=== PATIENT | male | born 1995 | race Caucasian/White ===

== ENCOUNTER 2023-08-14 13:40 | Emergency (ER) | payer OTHER, SELFPAY ==
[2023-08-14 13:52] VITALS: BP 115/67; PULSE 86; RESP 16; TEMP 36.8; O2SAT 97
--- NOTE | 2023-08-14 14:09 | ED.MALEGU ---
HPI - Male Genitourinary General Chief complaint: Urogenital-Male Stated complaint: Std test Time Seen by Provider: 08/14/23 14:09 Source: patient, RN notes reviewed and old records reviewed Mode of arrival: ambulatory Limitations: no limitations History of Present Illness HPI Narrative: 28 year old male presents to [facility] care with report that his girlfriend was in this clinic yesterday and tested positive for Trichomonas and received treatment and he wants tested also with treatment for trichomonas. Patient reports that he has not been with anyone besides his girlfriend. Patient denies any burning or pain with urination or any penis drainage, denies any CVA pain or any abdominal pain. Patient is diabetic and he is on insulin pump but does not have [employer] glucose monitor for 24 hour monitoring. Patient has 2+ glucose in his urine and Protein is 1+ with no blood, nitrates, or Leukocytes. Patient is diabetic and on insulin pump urine showing 2+ glucose, patient reports that he has not eaten today and finger stick 231. MD Complaint: other (STD exposure) Onset (ago): day(s) (1 day he was notified by girlfriend that she tested positive for trichomonas) Associated symptoms: Reports other (none) Related Data Home Medications Medication Instructions Recorded Confirmed insulin lispro 100 unit/mL 08/14/23 subcutaneous solution (Humalog U-100 Insulin) Allergies Allergy/AdvReac Type Severity Reaction Status Date / Time No Known Allergies Allergy Unverified 05/29/17 10:58 Review of Systems Review of Systems: CONSTITUTIONAL: Denies fever, chills, or sweats. CARDIOVASCULAR: Denies chest pain, palpitations, or edema. RESPIRATORY: Denies cough or dyspnea. GASTROINTESTINAL: Denies abdominal pain, nausea, vomiting, or diarrhea. GENITOURINARY: Reports no dysuria, frequency, urgency. Denies flank pain or hematuria,no penis discharge SKIN: Denies rash or itching. MUSCULOSKELETAL: Denies back pain or myalgia. Denies CVA tenderness NEUROLOGIC: Denies headache All systems reviewed & are unremarkable except as noted in HPI and below PMFSH Past Medical History Medical History (Updated 08/14/23 @ 15:35 by Renee Hernandez NP) Bronchitis Diabetes Gastroenteritis Surgical History Surgical History (Updated 08/14/23 @ 15:09 by Renee Hernandez NP) History of tonsillectomy Social History Social History (Updated 08/14/23 @ 15:08 by Renee Hernandez NP) Tobacco type: e-cigarettes/vaping Alcohol intake: never Substance use type: marijuana Living arrangements: other Additional living arrangements comments: with girlfriend Gender identity (if verbalized by the patient): Male Comments At time of signature, agree with nursing past medical, surgical, social and family history. There is no relevant family history pertinent to the presenting complaint Exam Narrative: GENERAL: Well-appearing, well-nourished, and in no acute distress. HEAD: Normocephalic, atraumatic. NECK: Supple.no lymphadenopathy CHEST: Clear to auscultation. No respiratory distress. SAO2 97% on room air HEART: Regular rate and rhythm. No murmur heard. Normal peripheral pulses. ABDOMEN: Soft, nontender, nondistended, normal active bowel sounds. No CVA tenderness, denies any burning with urination or any pain or penis drainage EXTREMITIES: Normal range of motion. No edema. SKIN: Warm, dry, no rash. NEURO: No focal deficits. Alert and oriented x3. Course Course Emergency Course: Patient is aware of diagnosis, understands and agrees to treatment plan.? Anticipatory guidance given.? Patient agrees to follow-up as directed and is aware of reasons to seek care at the emergency department. Portions of this record may have been created with voice recognition software Level of Care: Express Care Visit Vital Signs Vital signs: Vital Signs Temperature 36.8 C 08/14/23 13:52 Pulse Rate 86 08/14/23 13:52 Respiratory Rate 16
[2023-08-14 14:25] LABS: Glucose Point of Care 231 mg/dl (65-105)
[2023-08-14 19:37] LABS: Trichomonas Vag PCR NOT DETECTED (NOT DETECTE)
[2023-08-14 20:02] LABS: Chlamydia trachomatis NOT DETECTED (NOT DETECTE); Neisseria gonorrhoeae PCR NOT DETECTED (NOT DETECTE)
== END 2023-08-14 14:40 | disposition home or self-care (01) ==
PROVIDERS: Emergency Provider Registered Nurse
DX: Z11.3 Encounter for screening for infections with a predominantly sexual mode of transmission (principal); E11.65 Type 2 diabetes mellitus with hyperglycemia; Z79.4 Long term (current) use of insulin; F17.219 Nicotine dependence, cigarettes, with unspecified nicotine-induced disorders
CPT/HCPCS: 81003; 82948; 87491; 87591; 87661; 99204; G0463